=== PATIENT | female | born 1955 | race Hispanic/Latino ===

== ENCOUNTER 2023-09-26 09:30 | Outpatient (CLI) | payer MEDICARE, SELFPAY ==
--- NOTE | ~2023-09-26 | XR_ITS ---
AP and lateral views of the right hip Clinical history: Pain Findings: No acute fracture or dislocation is seen. Osseous alignment is anatomic. Right hip joint sp davis is preserved. Soft tissues are unremarkable. Impression: No significant abnormality is seen. Reviewed, dictated and finalized at location . Impression: No significant abnormality is seen.
--- NOTE | ~2023-09-26 | XR_ITS ---
Lumbosacral Spine: AP and lateral views Clinical History: Pain Findings: The normal lordotic curve is maintained. No fracture identified. There is 4 mm retrolisthes is of L1 over L2. There is 6 mm anterolisthesis of L4 over L5. There is severe facet arthropathy from L3 through S1. There is mild degenerative disc change throughout the lumbar spine, more moderate deg enerative disc change at L2-L3. The sacroiliac joints are normally outlined. Impression: Moderate to advanced spondylosis. 4 mm retrolisthesis of L1 over L2. 6 mm anterolisthesis of L4 over L5. Reviewed, dictated and finalized at location . Impression: Moderate to advanced spondylosis. 4 mm retrolisthesis of L1 over L2. 6 mm anterolisthesis of L4 over L5.
[2023-09-26 10:13] LABS: Hemoglobin 14.4 g/dL (11.7-13.8); Mean Corpuscular HGB Conc 33.5 g/dL (32-36); Mean Corpuscular Hemoglobin 29.4 pg (27.0-31.0); Mean Corpuscular Volume 87.8 fL (78.0-102.0); Platelet Count Result 486 K/mm3 (150-420); Red Cell Distribution Width 12.6 % (11.6-14.4); White Blood Count 7.6 K/mm3 (4.8-10.8)
[2023-09-26 10:16] LABS: Appearance Urine Sl Cloudy (Clear); Bilirubin Urine Negative (Negative); Blood Urine Negative (Negative); Color Urine Yellow (Yellow); Glucose Urine UA Negative (Negative); Ketones Urine Negative (Negative); Leukocyte Esterase Ur 1+ (Negative); Nitrate Urine Positive (Negative); Protein Urine Negative (Negative); pH Urine 6.5 (5.0-8.0)
[2023-09-26 10:22] LABS: MALB Creatinine Ratio 10.2 mg/g (0-30); Microalbumin Urine Random 25.1 mg/L
[2023-09-26 10:24] LABS: Hemoglobin A1C 6.8 % (<5.7)
[2023-09-26 10:26] LABS: Add Urine Microscopic? YES; Bacteria Urine 4+ /hpf; RBC Urine None seen /hpf (0-2); Squamous Epithelial Cell Urine Few /hpf (Few)
[2023-09-26 11:22] LABS: Alanine Aminotransferase 43 U/L (14-59); Albumin Level 3.8 g/dL (3.4-5.0); Alkaline Phosphatase 66 U/L (46-116); Anion Gap 12 mmol/L (4-12); Aspartate Amino Transferase 28 U/L (15-37); Bilirubin,Total 0.4 mg/dL (0.00-1.00); Blood Urea Nitrogen 13 mg/dL (7-18); Calcium 10.5 mg/dL (8.5-10.1); Carbon Dioxide 29 mmol/L (21-32); Chloride 98 mmol/L (98-108); Cholesterol 182 mg/dL (0-200); Creatine Kinase 131 U/L (26-192); Estimated Glomerular Filt Rate > 60; Free T3 2.95 pg/mL (2.18-3.98); Free T4 Free Thyroxine 1.33 ng/dL (0.76-1.46); Glucose 119 mg/dL (70-99); HDL Direct 52 mg/dL (40-60); LDL Cholesterol Calculated 87 mg/dL (<130); Osmolality Calculated 289 mOsm/kg (285-295); Potassium 3.9 mmol/L (3.5-5.1); Sodium 139 mmol/L (136-145); Thyroid Stimulating Hormone 1.41 uIU/mL (0.36-3.74); Total Protein 7.3 g/dL (6.4-8.2); Triglycerides 216 mg/dL (0-150)
== END 2023-09-26 09:31 | disposition home or self-care (01) ==
LOC: CHSLAB 09:39
PROVIDERS: PCP Internal Medicine; Visit Provider Internal Medicine
DX: E11.9 Type 2 diabetes mellitus without complications (principal); M54.50 Low back pain, unspecified; M25.551 Pain in right hip; M43.16 Spondylolisthesis, lumbar region
CPT/HCPCS: 36415; 72100; 73502; 80053; 80061; 81001; 82043; 82550; 83036; 84439; 84443; 84481; 85027; 86140

== ENCOUNTER 2023-10-01 11:33 | Outpatient (CLI) | payer MEDICARE, SELFPAY ==
[2023-10-01 12:21] LABS: Calcium 9.5 mg/dL (8.5-10.1); Phosphorus 3.3 mg/dL (2.6-4.7)
[2023-10-02 11:13] LABS: Ionized Calcium 5.3 mg/dL (4.7-5.5)
[2023-10-02 14:53] LABS: Parathyroid Intact 25 pg/mL (16-77)
[2023-10-03 12:05] LABS: Vitamin D 25 Hydroxy 66 ng/mL (30-100)
[2023-10-08 13:33] LABS: Vitamin D 1,25 (OH)2 Total 44 pg/mL (18-72); Vitamin D2 1,25 (OH)2 <8 pg/mL; Vitamin D3 1,25 (OH)2 44 pg/mL
== END 2023-10-01 11:34 | disposition home or self-care (01) ==
LOC: CHSLAB 11:37
PROVIDERS: PCP Internal Medicine; Visit Provider Internal Medicine
DX: E83.52 Hypercalcemia (principal); N39.0 Urinary tract infection, site not specified
CPT/HCPCS: 36415; 82306; 82310; 82330; 82652; 83970; 84100

== ENCOUNTER 2024-02-01 11:39 | Emergency (ER) | payer MEDICARE, SELFPAY ==
--- NOTE | ~2024-02-01 | CT_ITS ---
EXAMINATION: CT abdomen pelvis w con DATE: 02/01/2024 14:04 INDICATION: abdominal pain, diarrhea, nausea/vomiting x2 months TECHNIQUE: Computed tomography (CT) of the abdomen and pelvis was performed with 100 mL Omnipaque-350 intravenous contrast. Automated exposure control and iterative reconstruction technique were employe d. The dose-length product was 612.89 mGy-cm. COMPARISON: None. FINDINGS: Lower thorax: Unremarkable Liver: Normal. Biliary/Gallbladder: Gallbladder is normal. No bile duct dilation. Pancreas: No mass or duct dilation. Spleen: Normal. Adrenals:No mass. Kidneys: No suspicious mass, obstructing stone, or hydronephrosis. Punctate right inferior pole nonob structing calcification. GI tract: Mild distal esophageal and gastric wall edema. Mild colonic wall edema and mucosal hyperemi a from the hepatic flexure to the rectum. No small or large bowel dilation. Normal appendix. Divertic ulosis without diverticulitis. Mesentery/Peritoneum: No ascites, mass, or free air. Retroperitoneum: No mass. Pelvis: Pelvic organs are within normal limits. Soft Tissues: Soft tissues and body wall unremarkable. Bones: No acute osseous finding. IMPRESSION: Mild esophagitis/gastritis. Colonic wall findings may reflect a component of colitis in the appropriate clinical context. Reviewed, dictated and finalized at location K. HIATRIC NURSE IMPRESSION: Mild esophagitis/gastritis. Colonic wall findings may reflect a component of colitis in the appropriate cli nical context.
[2024-02-01 11:44] VITALS: BP 144/77; PULSE 79; RESP 18; TEMP 36.4; O2SAT 97
--- NOTE | 2024-02-01 11:57 | ED.GENADULT ---
HPI - General Adult General Chief complaint: Nausea/Vomiting/Diarrhea Stated complaint: nausea diarrhea Time Seen by Provider: 02/01/24 11:43 History of Present Illness HPI narrative: Emilee is a 68F with a PMH of DMII that presented to the ED with 2 months of waxing and waning worsening abdominal pain, frequent mucous diarrhea, nausea and non-bloody vommiting. After it started it was attributed to metformin but despite stopping this it continues to worsen. She has lost 50lb in 2 months. She has pain around her umbilicus that radiates to the back. No CP or dyspnea. Related Data Home Medications Medication Instructions Recorded Confirmed duloxetine 60 mg capsule,delayed 120 mg PO DAILY 02/01/24 02/01/24 release gabapentin 800 mg tablet 800 mg PO DAILY 02/01/24 02/01/24 hydrochlorothiazide 25 mg tablet 25 mg PO DAILY 02/01/24 02/01/24 propranolol 60 mg capsule,24 60 mg PO HS 02/01/24 02/01/24 hr,extended release Allergies Allergy/AdvReac Type Severity Reaction Status Date / Time lisinopril Allergy Unknown Verified 02/01/24 12:14 niacin Allergy Unknown Verified 02/01/24 12:14 Yizwdma-GGI-IqR Reductase Allergy Unknown Verified 02/01/24 12:14 Inhibitor Review of Systems Review of Systems: All systems reviewed & are unremarkable except as noted in HPI and below Exam Const: General: cooperative, healthy appearing, comfortable, no acute distress, well developed, alert, awake and Physically active Orientation/consciousness: oriented to person, oriented to place and oriented to time HENMT: Head: normal to inspection, normocephalic and atraumatic Ears: hearing grossly normal bilaterally and external ears normal Face/Nose/Sinus: Normal external nose present Eyes: General: appearance normal, both eyes and all related structures Periorbital: periorbital findings normal Sclera: sclerae normal Pupils: Equal, round and reactive pupils present Neck: Neck: normal visual inspection Chest: Chest palpation & inspection: normal inspection of the chest Resp: Effort & Inspection: normal respiratory effort, able to speak in complete sentences and no respiratory distress Auscultation: clear to auscultation bilaterally Cardio: Jugular venous distension: no JVD Rate: regular rate Rhythm: regular rhythm GI: Inspection: normal to inspection GI Palp: Yes Soft to palpation Auscultation: normal bowel sounds Other: Mild TTP in the lower quadrants. No guarding or rebound tenderness Skin: General skin exam: normal color and no rashes or lesions noted Neuro: General: oriented to person, oriented to place and oriented to time Cranial nerves: Yes Equal, round and reactive pupils present Extrem: General: normal to inspection Course Course Emergency Course: Ordered labs, CT, fluids, morphine, zofran and ativan Labs showed mild leukocytosis, unremarkable chemistries, but tested positive for C. diff. Given oral vancomycin. EXAMINATION: CT abdomen pelvis w con DATE: 02/01/2024 14:04 INDICATION: abdominal pain, diarrhea, nausea/vomiting x2 months TECHNIQUE: Computed tomography (CT) of the abdomen and pelvis was performed with 100 mL Omnipaque-350 intravenous contrast. Automated exposure control and iterative reconstruction technique were employed. The dose-length product was 612.89 mGy-cm. COMPARISON: None. FINDINGS: Lower thorax: Unremarkable Liver: Normal. Biliary/Gallbladder: Gallbladder is normal. No bile duct dilation. Pancreas: No mass or duct dilation. Spleen: Normal. Adrenals:No mass. Kidneys: No suspicious mass, obstructing stone, or hydronephrosis. Punctate right inferior pole nonobstructing calcification. GI tract: Mild distal esophageal and gastric wall edema. Mild colonic wall edema and mucosal hyperemia from the hepatic flexure to the rectum. No small or large bowel dilation. Normal appendix. Diverticulosis without diverticulitis. Mesentery/Peritoneum: No ascites, mass, or free air. Retroperitoneum: No mass. Pelvis: Pelvic organs are within normal limits. Soft Tissues: Soft tissues and body wall unremarkable. Bones: No acute osseous finding. IMPRESSION: Mild esophagitis/gastritis. Colonic wall findings may reflect a component of colitis in the appropriate clinical context. Vital Signs Vital signs: Vital Signs Temperature 97.5 F L 02/01/24 11:44 Pulse Rate 79 02/01/24 11:44 Respiratory Rate 18 02/01/24 11:44 Blood Pressure 144/77 H 02/01/24 11:44 Pulse Oximetry 97 02/01/24 11:44 Oxygen Delivery Room Air 02/01/24 11:44 Temperature 97.5 F L 02/01/24 11:44 Pulse Rate 79 02/01/24 11:44 Respiratory Rate 18 02/01/24 11:44 Blood Pressure 144/77 H 02/01/24 11:44 Pulse Oximetry 97 02/01/24 11:44 Oxygen Delivery Room Air 02/01/24 11:44 Medical Decision Making Vital Signs Vital Signs: Vital Signs Temperature 97.5 F L 02/01/24 11:44 Pulse Rate 79 02/01/24 11:44 Respiratory Rate 18 02/01/24 11:44 Blood Pressure 144/77 H 02/01/24 11:44 Pulse Oximetry 97 02/01/24 11:44 Oxygen Delivery Room Air 02/01/24 11:44 Temperature 97.5 F L 02/01/24 11:44 Pulse Rate 79 02/01/24 11:44 Respiratory Rate 18 02/01/24 11:44 Blood Pressure 144/77 H 02/01/24 11:44 Pulse Oximetry 97 02/01/24 11:44 Oxygen Delivery Room Air 02/01/24 11:44 Lab Data 02/01/24 12:37 02/01/24 12:37 Labs: Lab Results 02/01/24 02/01/24 02/01/24 Range/Units 11:55 12:34 12:37 WBC 12.8 H (4.8-10.8) K/mm3 RBC 4.95 (4.20-5.40) M/mm3 Hgb 14.2 H (11.7-13.8) g/dL Hct 43.0 H (35.0-42.0) % MCV 86.9 (78.0-102.0) fL MCH 28.7 (27.0-31.0) pg MCHC 33.0 (32-36) g/dL RDW 13.4 (11.6-14.4) % Plt Count 448 H (150-420) K/mm3 MPV 10.6 (9.2-11.8) fl Immature Gran % (Auto) 0.5 H (0.0-0.0) % Neut % (Auto) 67.4 (50.0-70.0) % Lymph % (Auto) 24.9 (18.0-42.0) % [place] % (Auto) 6.1 (2.0-11.0) % Eos % (Auto) 0.7 L (1.0-6.0) % Baso % (Auto) 0.4 (0.0-1.0) % Lymph # (Auto) 3.18 (1.10-4.50) K/mm3 [place] # (Auto) 0.78 (0.10-0.90) K/mm3 Eos # (Auto) 0.09 (0.02-0.50) K/mm3 Baso # (Auto) 0.05 (0.00-0.10) K/mm3 Abs Immat Gran (auto) 0.07 H (0.00-0.00) K/mm3 Absolute Neuts (auto) 8.59 H (1.70-7.20) K/mm3 Absolute Nucleated RBC 0.00 (0.00-0.00) K/mm3 Nucleated RBC % 0.0 (0-0.0) % Sodium 141 (136-145) mmol/L Potassium 3.6 (3.5-5.1) mmol/L Chloride 104 (98-108) mmol/L Carbon Dioxide 24 (21-32) mmol/L Anion Gap 13 H (4-12) mmol/L BUN 8 (7-18) mg/dL Creatinine 0.74 (0.55-1.02) mg/dL Estim Creat Clear Calc Not Reportable Estimated GFR > 60 (59 - ) Glucose 112 H (70-99) mg/dL Calculated Osmolality 291 (285-295) mOsm/kg Lactic Acid 1.4 (0.4-2.0) mmol/L Calcium 10.0 (8.5-10.1) mg/dL Total Bilirubin 0.4 (0.00-1.00) mg/dL AST 19 (15-37) U/L ALT 24 (14-59) U/L Alkaline Phosphatase 95 (46-116) U/L Total Protein 6.8 (6.4-8.2) g/dL Albumin 3.0 L (3.4-5.0) g/dL Lipase 43 (16-77) U/L Urine Color Yellow (Yellow) Urine Appearance Clear (Clear) Urine pH 6.5 (5.0-8.0) Ur Specific [place] 1.010 (1.010-1.020) Urine Protein Negative (Negative) Urine Glucose (UA) Negative (Negative) Urine Ketones Negative (Negative) Ur Blood (Man) Negative (Negative) Urine Nitrate Negative (Negative) Urine Bilirubin Negative (Negative) Urine Urobilinogen 0.2 (0.2-1.0) mg/dL Leukocyte Esterase Rfl Trace H (Negative) MALIK/UL Ur Squamous Epith Cells Many H (Few) /hpf Amorphous Sediment Moderate H (None) Urine Bacteria 1+ H (None) /hpf Granular Casts 5-9 H (None) /lpf Urine Mucus Few H /lpf Stool Occult Blood Negative (Negative) C. difficile (PCR) Positive A* (NEGATIVE) Discharge Plan Discharge Clinical Impression: C. difficile colitis Patient Disposition: Home, Self-Care Condition: Stable Instructions: Antibiotic Form Prescriptions: New vancomycin [Vancocin] 125 mg capsule 125 mg PO Q6H 10 Days Qty: 40 0RF Rx Instructions: take 125 mg 4 times per day for 10 days; No Action propranolol 60 mg capsule,extended release 24 hr 60 mg PO HS gabapentin 800 mg tablet 800 mg PO DAILY hydrochlorothiazide 25 mg tablet 25 mg PO DAILY duloxetine 60 mg capsule,delayed release(DR/EC) 120 mg PO DAILY Follow-up/Referrals: Alin Obrien MD [Primary Care Provider] -
[2024-02-01 12:05] LABS: Add Urine Microscopic? YES; Appearance Urine Clear (Clear); Bilirubin Urine Negative (Negative); Blood Urine Negative (Negative); Color Urine Yellow (Yellow); Glucose Urine UA Negative (Negative); Ketones Urine Negative (Negative); Leukocyte Esterase Ur Trace LEU/UL (Negative); Nitrate Urine Negative (Negative); Protein Urine Negative (Negative); Urobilinogen Urine 0.2 mg/dL (0.2-1.0); pH Urine 6.5 (5.0-8.0)
[2024-02-01 12:12] LABS: Amorphous Sediment Urine Moderate; Bacteria Urine 1+ /hpf; Mucus Urine Few /lpf; Squamous Epithelial Cell Urine Many /hpf (Few)
--- NOTE | 2024-02-01 12:35 | PC.NURSE ---
stool culture sent to lab
[2024-02-01] MEDS: SODIUM CHLORIDE 0.9% IV 1,000 ML 999 ML IV CONT (12:37)
[2024-02-01] MEDS: ONDANSETRON INJ 4 MG/2 ML VIAL IV PUSH (12:38)
[2024-02-01] MEDS: MORPHINE SULFATE (*CRX) 2 MG/ML INJ IV PUSH (12:38)
[2024-02-01] MEDS: LORazepam INJ (*CRX) 2 MG/ML VIAL 0.5 MG IV PUSH (12:38)
[2024-02-01 13:00] LABS: Basophils Absolute Auto 0.05 K/mm3 (0.00-0.10); Basophils Percent Auto 0.4 % (0.0-1.0); Eosinophils Absolute Auto 0.09 K/mm3 (0.02-0.50); Eosinophils Percent Auto 0.7 % (1.0-6.0); Hemoglobin 14.2 g/dL (11.7-13.8); Immature Granulocyte Absolute 0.07 K/mm3 (0.00-0.00); Immature Granulocyte Percent A 0.5 % (0.0-0.0); Lymphocytes Absolute Auto 3.18 K/mm3 (1.10-4.50); Lymphocytes Percent Auto 24.9 % (18.0-42.0); Mean Corpuscular Hemoglobin 28.7 pg (27.0-31.0); Mean Corpuscular Volume 86.9 fL (78.0-102.0); Mean Platelet Volume 10.6 fl (9.2-11.8); Monocytes Absolute Auto 0.78 K/mm3 (0.10-0.90); Monocytes Percent Auto 6.1 % (2.0-11.0); Neutrophils Absolute Auto 8.59 K/mm3 (1.70-7.20); Neutrophils Percent Auto 67.4 % (50.0-70.0); Platelet Count Result 448 K/mm3 (150-420); Red Blood Count 4.95 M/mm3 (4.20-5.40); Red Cell Distribution Width 13.4 % (11.6-14.4); White Blood Count 12.8 K/mm3 (4.8-10.8)
[2024-02-01 13:23] LABS: Alanine Aminotransferase 24 U/L (14-59); Alkaline Phosphatase 95 U/L (46-116); Anion Gap 13 mmol/L (4-12); Aspartate Amino Transferase 19 U/L (15-37); Bilirubin,Total 0.4 mg/dL (0.00-1.00); Blood Urea Nitrogen 8 mg/dL (7-18); Carbon Dioxide 24 mmol/L (21-32); Chloride 104 mmol/L (98-108); Estimated Glomerular Filt Rate > 60; Glucose 112 mg/dL (70-99); Lipase 43 U/L (16-77); Osmolality Calculated 291 mOsm/kg (285-295); Potassium 3.6 mmol/L (3.5-5.1); Sodium 141 mmol/L (136-145); Total Protein 6.8 g/dL (6.4-8.2)
[2024-02-01 13:27] LABS: Occult Blood Negative (Negative)
[2024-02-01 13:28] LABS: Lactic Acid Reflex 1.4 mmol/L (0.4-2.0)
[2024-02-01 14:24] LABS: Toxigenic C. Diff POSITIVE (NEGATIVE)
[2024-02-01] MEDS: VANCOMYCIN HCL 125 MG ORAL CAPSULE PO (15:00)
[2024-02-01 15:57] VITALS: BP 127/68; PULSE 66; RESP 20; TEMP 36.7; O2SAT 96
--- NOTE | 2024-02-04 12:37 | PC.NURSE ---
stool culture reviewed. shiga not detected, campylobactor no detected, salmonella pending.
== END 2024-02-01 16:00 | disposition home or self-care (01) ==
PROVIDERS: Emergency Provider Family Medicine; PCP Internal Medicine
DX: A04.72 Enterocolitis due to Clostridium difficile, not specified as recurrent (principal); E11.9 Type 2 diabetes mellitus without complications; Z79.899 Other long term (current) drug therapy
CPT/HCPCS: 36415; 74177; 80053; 81001; 82272; 83605; 83690; 85025; 87045; 87427; 87449; 87493; 96361; 96374; 96375; 99284; A9270; J2060; J2270; J2405; J7030; Q9967

== ENCOUNTER 2025-02-23 11:20 | Outpatient (NON) | payer MEDICARE, SELFPAY ==
[2025-02-23 11:31] LABS: Add Urine Microscopic? YES; Appearance Urine Clear (Clear); Glucose Urine UA Negative (Negative); Leukocyte Esterase Ur Trace (Negative); Nitrate Urine Negative (Negative); Specific Grav Ur 1.025 (1.010-1.020)
[2025-02-23 11:32] LABS: Hematocrit 36.2 % (35.0-42.0); Hemoglobin 12.1 g/dL (11.7-13.8); Mean Corpuscular HGB Conc 33.4 g/dL (32-36); Mean Corpuscular Hemoglobin 30.1 pg (27.0-31.0); Mean Corpuscular Volume 90.0 fL (78.0-102.0); Platelet Count Result 255 K/mm3 (150-420); Red Blood Count 4.02 M/mm3 (4.20-5.40); White Blood Count 20.8 K/mm3 (4.8-10.8)
[2025-02-23 12:22] LABS: Alanine Aminotransferase 31 U/L (6-35); Albumin Level 3.6 g/dL (3.5-5.1); Alkaline Phosphatase 88 U/L (38-126); Anion Gap 15 mmol/L (4-12); Aspartate Amino Transferase 33 U/L (14-36); Bilirubin,Total 0.8 mg/dL (0.2-1.3); Blood Urea Nitrogen 20 mg/dL (7-17); CRP > 9.0 mg/dL (<1.0); Calcium 9.3 mg/dL (8.4-10.2); Carbon Dioxide 20 mmol/L (22-30); Chloride 101 mmol/L (98-107); Estimated Glomerular Filt Rate > 60; Glucose 132 mg/dL (65-110); Lipase 22 U/L (23-300); Osmolality Calculated 286 mOsm/kg (285-295); Potassium 3.7 mmol/L (3.4-5.0); Sodium 136 mmol/L (137-145); Total Protein 6.0 g/dL (6.3-8.2)
[2025-02-23 12:40] LABS: Amylase 33 U/L (30-110)
== END 2025-02-23 11:21 | disposition home or self-care (01) ==
PROVIDERS: PCP Internal Medicine; Visit Provider Internal Medicine
DX: R10.9 Unspecified abdominal pain (principal); R11.2 Nausea with vomiting, unspecified
CPT/HCPCS: 36415; 80053; 81001; 82150; 83690; 85027; 86140; 87086

== ENCOUNTER 2025-03-07 15:36 | Inpatient (IN) | payer MEDICARE, SELFPAY ==
--- NOTE | ~2025-03-07 | CT_ITS ---
CT abdomen pelvis w con INDICATION:diffuse abd pain . COMPARISON: None. TECHNIQUE: Axial images of the abdomen and pelvis were obtained following infusion of 100 mL Isovue 300. Dose optimization technique was utilized. FINDINGS: The lung bases are clear. The liver parenchyma is unremarkable. No intrahepatic mass or ductal dilatation is evident. The gallbladder is unremarkable. The pancreas and spleen are normal in appearance. The adrenal glands are symmetric in size. Heterogeneous area of diminished enhancement within the right kidney suggestive of pyelonephritis. Left kidney demonstrate normal enhancement. No cystic mass is evident. There is no solid mass. There is no hydronephrosis. The stomach and bowel loops are unremarkable. The bladder and rectum are normal. No free intraperitoneal fluid or air is evident. There is no significant retroperitoneal lymphadenopathy. The aorta, visceral vessels and renal arteries demonstrate normal caliber and patency. The lower thoracic and lumbar vertebrae are in normal alignment. IMPRESSION: Heterogeneous enhancement of the right kidney suggestive of pyelonephritis. All CT scans at this facility are performed using low dose modulation techniques as appropriate to perform exam including the following: automated exposure control; use of iterative reconstruction technique; adjustment of the mA and/or kV according to patient size (this includes techniques or standardized protocols for targeted exams where dose is matched to indication/reason for exam). Reviewed, dictated and finalized at location S. NTIST/ENGINEER IMPRESSION: Heterogeneous enhancement of the right kidney suggestive of pyelonephritis. All CT scans at this facility are performed using low dose modulation techniqu es as appropriate to perform exam including the following: automated exposure c ontrol; use of iterative reconstruction technique; adjustment of the mA and/or kV according to patient size (this includes techniques or standardized protocol s for targeted exams where dose is matched to indication/reason for exam).
[2025-03-07 15:39] VITALS: BP 120/78; PULSE 125; RESP 20; TEMP 36.8; O2SAT 99
--- NOTE | 2025-03-07 18:00 | ED_ITS ---
HPI - Nausea/Vomiting/Diarrhea General Chief complaint: Nausea/Vomiting/Diarrhea Stated complaint: abd pain x 1 week, N/V/D Time Seen by Provider: 03/07/25 17:44 History of Present Illness HPI Narrative: This is a 69-year-old female fibromyalgia, lupus who presents the ED for abdominal pain, nausea, vomiting. Patient states that for the past week or so, she has been having right flank and right lower quadrant abdominal pain with nausea and vomiting. She states that she was seen by her PCP for this and was diagnosed with a kidney infection. She completed the antibiotics a few days ago but continues to have symptoms. She called her PCP today who advised her to come to the ED for further evaluation. Patient reports the pain is actually better than was last week but she continues to have this pain. Denies hematuria, dysuria. Related Data Home Medications ?Medication ?Instructions ?Recorded ?Confirmed ?Last Taken ?Type duloxetine 60 mg capsule,delayed 120 mg PO DAILY 01/3102/01/24 Unknown History release gabapentin 800 mg tablet 800 mg PO DAILY 02/01/2401/14 Unknown History hydrochlorothiazide 25 mg tablet 25 mg PO DAILY 02/01/24 Unknown History propranolol 60 mg capsule,24 60 mg PO HS 02/01/2401/22 Unknown History hr,extended release Allergies Allergy/AdvReac Type Severity Reaction Status Date / Time lisinopril Allergy Unknown Verified 03/07/25 22:05 niacin Allergy Unknown Verified 03/07/25 22:05 Ppieljp-VXC-AiO Reductase Allergy Unknown Verified 03/07/25 22:05 Inhibitor Review of Systems 2 Review of Systems: Gen.: Denies fevers or chills Eyes: Denies eye pain or visual change ENT: Denies congestion Respiratory: Denies shortness of breath or cough CV: Denies chest pain or palpitations GI: As per HPI denies burning, urgency, frequency or hematuria Musculoskeletal: Denies back pain or muscle pain Neuro: Denies numbness, tingling, weakness or focal weakness Skin: Denies rash Except as documented, all other systems reviewed and negative [facility] Past Medical History Medical History (Updated 03/07/25 @ 22:08 by Satnam Hale DO) Hyperlipidemia Hypertension Fibromyalgia Anxiety and depression Surgical History Surgical History (Updated 03/07/25 @ 21:06 by Pamella Singh APRN) H/O tubal ligation H/O section times 3 History of tonsillectomy Family History Family History (Updated 03/07/25 @ 22:16 by Ori Gardiner RN) Mother Heart disease Cerebrovascular accident Myocardial infarction Dementia Diabetes mellitus Father Heart disease Cerebrovascular accident Myocardial infarction Dementia Diabetes mellitus Parkinsons Social History Social History (Updated 03/07/25 @ 21:07 by Pamella Singh APRN) Social History: lives with and has 3 children . Smoking status: Former smoker Alcohol intake: never Substance use: current Substance use type: marijuana Lack of Transportation: No Lack of Food: Never True Current Housing: I Have Housing Concerned About Future Housing: No Difficulty Paying Gas/Electric Bills: No Difficulty Paying for Meds: No Currently Unemployed: No Education: High School Diploma/GED Difficulty w/ Childcare or Family Care: No Spiritual care concerns: No Exam 2 Narrative: APPEARANCE: No acute distress, ill-appearing, resting in bed EYES: EOMI HEENT: Normocephalic, atraumatic, OMM RESPIRATORY: No respiratory distress Clear to auscultation bilaterally with no rhonchi wheezing or rales. CARDIOVASCULAR: Regular rate and rhythm without murmurs rubs or gallops. ABDOMINAL: Soft, CVA tenderness on the right, right lower quadrant tenderness to palpation, epigastric tenderness to palpation, no rebound or guarding MUSCULOSKELETAl: Moves all extremities. No clubbing, cyanosis or edema. NEURO: Awake and alert. Following commands, speech normal, no focal deficits SKIN:: Warm, dry. No rashes lesions or abrasions PSYCHIATRIC: Normal affect/mood, Course Vital Signs Vital signs: Vital Signs Temperature 98.2 F 03/07/25 15:39 Pulse Rate 125 H 03/07/25 15:39 Respiratory Rate 20 03/07/25 15:39 Blood Pressure 120/78 03/07/25 15:39 Pulse Oximetry 99 03/07/25 15:39 Oxygen Delivery Room Air 03/07/25 15:39 Temperature 98.3 F 03/07/25 21:55 Pulse Rate 79 03/07/25 21:55 Respiratory Rate 18 03/07/25 21:55 Blood Pressure 162/66 H 03/07/25 21:55 Pulse Oximetry 98 03/07/25 21:55 Oxygen Delivery Room Air 03/07/25 15:39 [facility] Narrative Medical decision making narrative: 69-year-old female Presenting for right abdominal pain had nausea vomiting. On initial evaluation patient was in mild distress afebrile, hemodynamic stable. Differentials include but are not limited to: Gastroenteritis, gastritis, UTI, pyelonephritis, ureterolithiasis, cancer Notable exam findings: CVA tenderness on the right with tenderness palpation of the right lower quadrant. Mucous membranes mildly dry. I personally reviewed the patient's lab result. Notable lab findings: Leukocytosis at 11.7. Thrombocytosis at 699. CMP without significant abnormalities. Lactic acid 2.3. CT abdomen/pelvis consistent with right pyelonephritis. Patient will be given Rocephin for her pyelonephritis with failure of outpatient treatment. Patient will require admission. Case was discussed with hospitalist who will admit the patient. Differential Diagnosis Differential Diagnosis: Gastroenteritis, gastritis, UTI, pyelonephritis, ureterolithiasis, cancer Lab Data [facility] Lab Attestation statement: I personally reviewed the patient's lab results. 03/07/25 18:13 03/07/25 18:13 Labs: Lab Results 03/07/25 Range/Units 18:13 WBC 11.7 H (4.5-10.0) K/mm3 RBC 4.67 (4.2-5.4) M/mm3 Hgb 13.9 (12.0-15.0) g/dL Hct 41.0 (37.0-47.0) % MCV 87.8 (80-100) fl MCH 29.8 (26-34) pg MCHC 33.9 (32-36) g/dl RDW 13.2 (11.5-14.5) % Plt Count 699 H (150-375) k/mm3 MPV 9.3 (7.4-10.4) fl Immature Gran % (Auto) 0.4 (0-0.5) % Neut % (Auto) 47.0 (45.5-73.1) % Lymph % (Auto) 44.1 (18.3-44.2) % [place] % (Auto) 7.6 (2.6-8.5) % Eos % (Auto) 0.4 (0-4.4) % Baso % (Auto) 0.5 (0.2-1.2) % Lymph # (Auto) 5.17 H (0.9-3.2) K/mm3 [place] # (Auto) 0.9 H (0.1-0.6) K/mm3 Eos # (Auto) 0.1 (0-0.3) K/mm3 Baso # (Auto) 0.1 (0.0-0.1) K/mm3 Abs Immat Gran (auto) 0.05 H (0.00-0.031) K/mm3 Absolute Neuts (auto) 5.5 (1.3-6.7) K/mm3 Absolute Nucleated RBC 0.000 (0.0-0.012) K/mm3 Nucleated RBC % 0.0 (0.0-0.2) % Sodium 136 L (137-145) mmol/L Potassium 3.8 (3.4-5.0) mmol/L Chloride 101 (98-107) mmol/L Carbon Dioxide 25 (22-30) mmol/L Anion Gap 10 (4-12) mmol/L BUN 17 (7-17) mg/dL Creatinine 0.83 (0.7-1.0) mg/dL Estim Creat Clear Calc Not Reportable Estimated GFR > 60 (59 - ) Glucose 106 (65-110) mg/dL Lactic Acid 2.3 H (0.7-2.0) mmol/L Calcium 10.3 H (8.4-10.2) mg/dL Total Bilirubin 0.7 (0.2-1.3) mg/dL AST 36 (14-36) U/L ALT 18 (6-35) U/L Alkaline Phosphatase 106 (38-126) U/L Total Protein 8.0 (6.3-8.2) g/dL Albumin 4.3 (3.5-5.1) g/dL Lipase 110 (23-300) U/L Imaging Data Radiologist's impression: ITS Impressions Abdomen/Pelvis CT 03/07/25 19:18 IMPRESSION: Heterogeneous enhancement of the right kidney suggestive of pyelonephritis. All CT scans at this facility are performed using low dose modulation techniques as appropriate to perform exam including the following: automated exposure control; use of iterative reconstruction technique; adjustment of the mA and/or kV according to patient size (this includes techniques or standardized protocols for targeted exams where dose is matched to indication/reason for exam). Discharge Plan Discharge Clinical Impression: Acute pyelonephritis Sepsis Qualifiers: Sepsis type: sepsis due to unspecified organism Sepsis acute organ dysfunction status: without acute organ dysfunction Qualified Code(s): A41.9 - Sepsis, unspecified organism Patient Disposition: Still a Patient Condition: Stable
--- OUTSIDE RECORDS SUMMARY | 2025-03-07 18:34 | XMS_ITS ---
Author Organization Unknown Address [address] [place] [phone] Phone Care Team Providers Care Apparatus Engineering Technologist Name Role Phone SHAJI RAMOS Attending Unavailable Results CBC W/O DIFF - Collect Date/ Time: 02/24/2025 11:45 [facility] ID: [id number] [place] [address], [id number] LOINC: 76133-5 Test Value Unit Reference Range Code Code System Flag WBC 11.5 10^3uL L=4.0 H=10.5 H RBC 4.15 10^6uL L=4.20 H=5.40 L HEMOGLOBIN 12.2 g/dL L=12.0 H=16.0 718-7 LOINC HEMATOCRIT 36.7 VOL% L=37.0 H=47.0 4544-3 LOINC L MCV 88.4 fL L=81.0 H=99.0 MCH 29.4 pg L=27.0 H=32.0 MCHC 33.2 g/dL L=32.0 H=36.0 PLATELETS 301 10^3uL L=100 H=400 27022-6 LOINC RDW 13.1 % L=11.7 H=15.5 COMPREHENSIVE METABOLIC PANE L - Collect Date/Time: 02/24/2025 11:45 [facility] ID: [id number] [place] [address], [id number] LOINC: 78607-8 Test Value Unit Reference Range Code Code System Flag FASTING UNKNOWN BUN 26 mg/dL L=7 H=20 3094-0 LOINC H CREATININE 1.10 mg/dL L=0.52 H=1.04 2160-0 LOINC H AGE 69 83544-8 LOINC eGFR 54 AGE 69 71291-5 LOINC eGFR 54 GLUCOSE 108 mg/dL L=74 H=106 2345-7 LOINC H SODIUM 136 mmol/L L=132 H=144 2951-2 LOINC POTASSIUM 3.1 mmol/L L=3.5 H=5.1 2823-3 LOINC L CHLORIDE 99 mmol/L L=98 H=107 2075-0 LOINC CO2 24.0 mmol/L L=22.0 H=30.0 2028-9 LOINC ANION GAP 16 L=10 H=20 92004-7 LOINC OSMOLALITY 288 mOs/kG L=280 H=296 79890-1 LOINC BUN/CREAT 24.5 3097-3 LOINC CALCIUM 9.0 mg/dL L=8.3 H=10.5 20737-7 LOINC AST 35 U/L L=15 H=46 1920-8 LOINC ALT 24 U/L L=9 H=72 1742-6 LOINC ALKALINE PHOS 121 U/L L=38 H=126 6768-6 LOINC TOTAL BILI 0.8 mg/dL L=0.2 H=1.3 1975-2 LOINC ALBUMIN 3.8 G/dL L=3.5 H=5.0 1751-7 LOINC TOTAL PROTEIN 6.9 g/L L=6.3 H=8.2 2885-2 LOINC A/G RATIO 1.2 80594-[address] ABD/PEL W/ CONTRAST - Com pleted: 02/24/2025 11:40 LOINC: 07610-8 \TM00\\12PI\\DRAo\\BM09\ \MRHo\ [address] [address] ---------NAME--------- NUMBER SEX AGE ADMIT DISC. XRAY# F/C TYPE MAGALI ACE [id number] F 69 02/24/25 02/24/25 [id number] MB1 O/P DATE OF : 1955 M/R# [id number] PH#: [phone] \MRHx\ LOCATION: TRANSCRIBED: 02/24/25 12:07 CT ABD/PEL W/ CONTRAST [id number] COMPLETED:02/24/25 11:40 [facility] [id number] {REASON-CT ABD/PELVIS ABDOMINAL PAIN PHYSICIAN: SHAJI ESPINOSA R A D I O L O G Y R E P O R T CLINICAL INFORMATION: Abdominal pain. Nausea and vomiting. Leukocytosis. Diarrhea. TECHNIQUE: Axial CT images of the abdomen and pelvis were obtained after the uneventful administration of 100 mL isovue 370 IV contrast. Coronal and sagittal reformatted images were obtained, reviewed, and stored. All CT scans at this medical facility are performed using dose modulation techniques as appropriate to a performed exam including the following: Automated exposure control was utilized; adjustment of the MA and/or KV according to patient size; and use of iterative reconstruction technique. CTDIvol = 20.88 mGy DLP = 1007.56 mGy-cm COMPARISON: None FINDINGS: Lung bases: Lung bases are clear. Liver: Hepatic steatosis. Biliary: No calcified gallstones visualized in the gallbladder. No biliary ductal dilatation. Spleen: Unremarkable. Pancreas: Unremarkable. No inflammatory changes, ductal dilatation, or mass identified. Adrenal glands: Left adrenal nodule measures up to 1.2 cm. Kidneys: Abnormal heterogeneous enhancement in the right kidney, may be seen with pyelonephritis in the appropriate clinical setting. There is mild bilateral perinephric stranding and trace fluid. No hydronephrosis. No obstructing calculus visualized. Aorta/Vascular: Moderate atherosclerotic calcification. No abdominal aortic aneurysm. Lymph Nodes: No mass or lymphadenopathy. Bowel/mesentery: Nonspecific nondilated fluid-filled small bowel loops. There are areas of mild small bowel wall thickening. No small bowel obstruction. Appendix is visualized and appears unremarkable. Scattered colonic diverticula without adjacent inflammatory changes to suggest diverticulitis. Pelvic organs: Grossly unremarkable. Bladder: Bladder is underdistended and not well evaluated. Abdominal wall: No mass or hernia. Bones: Mild grade 1 anterolisthesis of L4 on L5. Minimal retrolisthesis of L1 on L2. No evidence of acute fracture or suspicious intraosseous lesion. IMPRESSION: 1. Abnormal heterogeneous enhancement of the right kidney, may be seen with pyelonephritis in the appropriate clinical setting. Correlate with clinical findings. 2. Nonspecific nondilated fluid-filled small bowel loops with areas of mild small bowel wall thickening. Findings may be seen with ileus or enteritis in the appropriate clinical setting. No small bowel obstruction. 3. Scattered colonic diverticula without adjacent inflammatory changes to suggest diverticulitis. 4. Left adrenal nodule measures up to 1.2 cm. Per ACR white paper on incidentally detected adrenal masses, for masses measuring 1-2 cm with no prior imaging and no known cancer history, the etiology is most likely benign. Consider 12 month follow-up CT adrenal mass protocol. 5. Additional findings as described above. LOGY RESEARCH RN \ITLo\ \UNDo\ \UNDx\ \ITLx\ Reviewed and Electronically Signed by: Ken Hernández DO Signed Date: 02/24/25 12:07 Social History Type Status Start Date End Date Code Code Syst em Sex Female Hospital Discharge Instructions Should you have any questions prior to discharge, please contact a member of your healthcare team. If you have left the hospital and have any questions, please contact your primary care physician. Reason For Referral No Data Found Plan of Treatment CT Abdomen/Pelvis W Contrast (08236) Encounters Encounter Diagnosis Start Date Code Code Sys tem Disorder of adrenal gland, unspecified 02/24/2025 SNOMED-CT Personal Care Team Section Imaging Narrative Notes [facility] 02/24/2025 12:10 [facility] [address] [place] [address] ---------NAME--------- NUMBER SEX AGE ADMIT DISC. XRAY# F/C TYPE MAGALI ACE [id number] F 69 02/24/25 02/24/25 [id number] MB1 O/P DATE OF : 1955 M/R# [id number] #: [id number] RM LOCATION: TRANSCRIBED: 02/24/25 12:07 CT ABD/PEL W/ CONTRAST [id number] COMPLETED:02/24/25 11:40 [facility] [id number] {REASON-CT ABD/PELVIS ABDOMINAL PAIN PHYSICIAN: SHAJI ESPINOSA RADIOLOGY REPORT CLINICAL INFORMATION: Abdominal pain. Nausea and vomiting. Leukocytosis. Diarrhea. TECHNIQUE: Axial CT images of the abdomen and pelvis were obtained after the uneventful administration of 100 mL isovue 370 IV contrast. Coronal and sagittal reformatted images were obtained, reviewed, and stored. All CT scans at this medical facility are performed using dose modulation techniques as appropriate to a performed exam including the following: Automated exposure control was utilized; adjustment of the MA and/or KV according to patient size; and use of iterative reconstruction technique. CTDIvol = 20.88 mGy DLP = 1007.56 mGy-cm COMPARISON: None FINDINGS: Lung bases: Lung bases are clear. Liver: Hepatic steatosis. Biliary: No calcified gallstones visualized in the gallbladder. No biliary ductal dilatation. Spleen: Unremarkable. Pancreas: Unremarkable. No inflammatory changes, ductal dilatation, or mass identified. Adrenal glands: Left adrenal nodule measures up to 1.2 cm. Kidneys: Abnormal heterogeneous enhancement in the right kidney, may be seen with pyelonephritis in the appropriate clinical setting. There is mild bilateral perinephric stranding and trace fluid. No hydronephrosis. No obstructing calculus visualized. Aorta/Vascular: Moderate atherosclerotic calcification. No abdominal aortic aneurysm. Lymph Nodes: No mass or lymphadenopathy. Bowel/mesentery: Nonspecific nondilated fluid-filled small bowel loops. There are areas of mild small bowel wall thickening. No small bowel obstruction. Appendix is visualized and appears unremarkable. Scattered colonic diverticula without adjacent inflammatory changes to suggest diverticulitis. Pelvic organs: Grossly unremarkable. Bladder: Bladder is underdistended and not well evaluated. Abdominal wall: No mass or hernia. Bones: Mild grade 1 anterolisthesis of L4 on L5. Minimal retrolisthesis of L1 on L2. No evidence of acute fracture or suspicious intraosseous lesion. IMPRESSION: 1. Abnormal heterogeneous enhancement of the right kidney, may be seen with pyelonephritis in the appropriate clinical setting. Correlate with clinical findings. 2. Nonspecific nondilated fluid-filled small bowel loops with areas of mild small bowel wall thickening. Findings may be seen with ileus or enteritis in the appropriate clinical setting. No small bowel obstruction. 3. Scattered colonic diverticula without adjacent inflammatory changes to suggest diverticulitis. 4. Left adrenal nodule measures up to 1.2 cm. Per ACR white paper on incidentally detected adrenal masses, for masses measuring 1-2 cm with no prior imaging and no known cancer history, the etiology is most likely benign. Consider 12 month follow-up CT adrenal mass protocol. 5. Additional findings as described above. LOGY RESEARCH RN Reviewed and Electronically Signed by: Ken Hernández DO Signed Date: 02/24/25 12:07
[2025-03-07 18:36] LABS: Hematocrit 41.0 % (37.0-47.0); Hemoglobin 13.9 g/dL (12.0-15.0); Immature Granulocyte Percent A 0.4 % (0-0.5); Lymphocytes Absolute Auto 5.17 K/mm3 (0.9-3.2); Mean Corpuscular HGB Conc 33.9 g/dl (32-36); Mean Corpuscular Hemoglobin 29.8 pg (26-34); Mean Corpuscular Volume 87.8 fl (80-100); Nucleated Red Blood Cells Absolute Auto 0.000 K/mm3 (0.0-0.012); Nucleated Red Blood Cells Perc 0.0 % (0.0-0.2); Platelet Count Result 699 k/mm3 (150-375); Red Blood Count 4.67 M/mm3 (4.2-5.4); White Blood Count 11.7 K/mm3 (4.5-10.0)
[2025-03-07 18:41] LABS: Albumin Level 4.3 g/dL (3.5-5.1); Carbon Dioxide 25 mmol/L (22-30); Total Protein 8.0 g/dL (6.3-8.2)
[2025-03-07 18:52] LABS: Alanine Aminotransferase 18 U/L (6-35); Alkaline Phosphatase 106 U/L (38-126); Anion Gap 10 mmol/L (4-12); Aspartate Amino Transferase 36 U/L (14-36); Bilirubin,Total 0.7 mg/dL (0.2-1.3); Blood Urea Nitrogen 17 mg/dL (7-17); Calcium 10.3 mg/dL (8.4-10.2); Chloride 101 mmol/L (98-107); Estimated Glomerular Filt Rate > 60; Glucose 106 mg/dL (65-110); Lipase 110 U/L (23-300); Potassium 3.8 mmol/L (3.4-5.0); Sodium 136 mmol/L (137-145)
[2025-03-07] MEDS: SODIUM CHLORIDE 0.9% IV 1,000 ML 999 ML IV CONT (18:56)
[2025-03-07] MEDS: KETOROLAC 15 MG/ML VIAL (*BKC) IV PUSH (18:56)
[2025-03-07] MEDS: ONDANSETRON INJ 4 MG/2 ML VIAL IV PUSH (18:57)
[2025-03-07 19:15] VITALS: BP 99/52; PULSE 89; RESP 11; O2SAT 100
[2025-03-07 20:26] VITALS: BP 117/63; PULSE 81; RESP 10; O2SAT 99
--- NOTE | 2025-03-07 20:30 | PM.IMHP2 ---
H&P: HPI History of Present Illness Date/Time: 03/07/25 20:30 Chief Complaint: Nausea vomiting and diarrhea. Narrative: This is a 69-year-old female patient who has a history of fibromyalgia. She presented to the emergency room with nausea vomiting and abdominal pain. She has been having right flank pain for over week and now has left flank pain. She was seen by her primary care doctor this last week and was diagnosed with a urinary tract infection. She completed all of her antibiotics. She still continues to have flank pain bilaterally. She notified her PCP today who then instructed her to go to the emergency room. Her white count is noted to be 11.7. Her lactic was 2.3 and is now 1.9. Calcium was 10.3. Abdomen/pelvis CT was read as heterogeneous enhancement of the right kidney suggestive of pyelonephritis. The patient was started on IV fluids, Zofran, Toradol and Rocephin. The patient is being admitted to inpatient status the date of service of 03/07/2025 Review of Systems Constitutional: Constitutional: Reports as per HPI and Reports no additional constitutional complaints Eyes: Eyes: Reports as per HPI and Reports no additional eye complaints ENT: Reports no additional ear, nose, mouth, and throat complaints and Reports Normal hearing present Cardiovascular: Cardiovascular: Reports no additional cardiovascular complaints Respiratory: Respiratory: Reports as per HPI and Reports no additional respiratory complaints Gastrointestinal: Gastrointestinal: Reports as per HPI and Reports no additional gastrointestinal complaints Genitourinary: Genitourinary: Reports no additional female genitourinary complaints Musculoskeletal: Musculoskeletal: Reports no additional musculoskeletal complaints Integumentary/Breasts: Skin/Breast: Reports system reviewed and no additional complaints, except as docu Neurologic: Reports no additional neurologic complaints and Reports Normal hearing present Psychiatric: Psychiatric: Reports no additional psychiatric complaints and Reports as per HPI Hematologic/Lymphatic: Hematologic/Lymphatic: Reports no additional hematologic/lymphatic complaints Allergic/Immunologic: Allergic/Immunologic: Reports no additional allergic/immunologic complaints [facility] Past Medical History Medical History (Updated 03/07/25 @ 22:08 by Satnam Hale DO) Hyperlipidemia Hypertension Fibromyalgia Anxiety and depression Surgical History Surgical History (Updated 03/07/25 @ 21:06 by Pamella Singh APRN) H/O tubal ligation H/O section times 3 History of tonsillectomy Family History Family History (Updated 03/07/25 @ 21:08 by Pamella Singh APRN) Mother Heart disease Cerebrovascular accident Father Heart disease Cerebrovascular accident Social History Social History (Updated 03/07/25 @ 21:07 by Pamella Singh APRN) Social History: lives with and has 3 children . Smoking status: Former smoker Meds Home Medications and Allergies Home Medications ?Medication ?Instructions ?Recorded ?Confirmed ?Type duloxetine 60 mg capsule,delayed 120 mg PO DAILY 02/01/24 02/01/24 History release gabapentin 800 mg tablet 800 mg PO DAILY 02/01/24 02/01/24 History hydrochlorothiazide 25 mg tablet 25 mg PO DAILY 02/01/24 02/01/24 History propranolol 60 mg capsule,24 60 mg PO HS 02/01/24 02/01/24 History hr,extended release vancomycin 125 mg capsule 125 mg PO Q6H 10 days #40 caps 02/01/24 Rx (Vancocin) Allergies Allergy/AdvReac Type Severity Reaction Status Date / Time lisinopril Allergy Unknown Verified 03/07/25 22:05 niacin Allergy Unknown Verified 03/07/25 22:05 Rjvvxir-ZGT-XfK Reductase Allergy Unknown Verified 03/07/25 22:05 Inhibitor Vital Signs Vital Signs - 24 hr 03/07/25 15:39 Temperature 98.2 F Pulse Rate 125 H Respiratory Rate 20 Blood Pressure 120/78 Pulse Oximetry 99 Oxygen Delivery Room Air Exam Const: General: cooperative, no acute distress, well developed, awake, Physically active, average body habitus and well nourished Nutritional Appearance: average body habitus and well nourished Orientation/consciousness: oriented to person, oriented to place, oriented to time and patient oriented x3 Limitations: no limitations HENMT: Head: normal to inspection, No palpable skull fracture present and normocephalic Eyes: General: appearance normal, both eyes and all related structures Alignment and Position: alignment normal Periorbital: periorbital findings normal Eyelids: eyelids normal Neck: Neck: normal visual inspection and full ROM Chest: Chest palpation & inspection: normal inspection of the chest Resp: Effort & Inspection: normal respiratory effort Auscultation: clear to auscultation bilaterally Percussion: percussion normal Cardio: Palpation: normal PMI Rate: regular rate Rhythm: regular rhythm Heart sounds: S1 normal heart sound present and S2 normal heart sound present Peripheral pulses: Peripheral pulses 2+ throughout GI: Inspection: normal to inspection GI Palp: Yes Tenderness to palpation present (GI) (CVa tenderness bilaterally.) Auscultation: normal bowel sounds Rectal Exam: deferred Skin: General skin exam: normal color Lesions: no lesions Rashes: no rashes Trauma: no lacerations or abrasions Wounds: no wounds Hair: normal Nails: normal Neuro: General: oriented to person, oriented to place, oriented to time and patient oriented x3 Cranial nerves: Yes Normal hearing present Cognition (Neuro): normal cognition Speech: normal speech Gait exam (Neuro): Normal gait present Motor exam (neuro): 5/5 motor strength present throughout Sensory Exam: normal sensation Extrem: General: normal to inspection Right upper extremity: normal to inspection and shoulder/upper arm Left upper extremity: normal to inspection and shoulder/upper arm Right lower extremity: normal to inspection Left lower extremity: normal to inspection Psych: Appearance: grossly normal Mental Status: mental status grossly normal Speech and movement: Normal speech and movement present Affect: normal affect Attitude: cooperative Thought process: Normal thought process present Thought content: Yes Normal thought content present Insight: Good insight present (Psych) Judgement: Good judgement present (Psych) Results Labs Labs: Short CBC 03/07/25 Range/Units 18:13 WBC 11.7 H (4.5-10.0) K/mm3 Hgb 13.9 (12.0-15.0) g/dL Hct 41.0 (37.0-47.0) % Plt Count 699 H (150-375) k/mm3 BMP 03/07/25 18:13 Sodium 136 L Potassium 3.8 Chloride 101 Carbon Dioxide 25 BUN 17 Creatinine 0.83 Glucose 106 Calcium 10.3 H Liver Function 03/07/25 Range/Units 18:13 Total Bilirubin 0.7 (0.2-1.3) mg/dL AST 36 (14-36) U/L ALT 18 (6-35) U/L Alkaline Phosphatase 106 (38-126) U/L Albumin 4.3 (3.5-5.1) g/dL Imaging CT scan - abdomen: Radiologist's impression: ITS Impressions Abdomen/Pelvis CT 03/07/25 19:18 IMPRESSION: Heterogeneous enhancement of the right kidney suggestive of pyelonephritis. All CT scans at this facility are performed using low dose modulation techniques as appropriate to perform exam including the following: automated exposure control; use of iterative reconstruction technique; adjustment of the mA and/or kV according to patient size (this includes techniques or standardized protocols for targeted exams where dose is matched to indication/reason for exam). Quality VTE Prophylaxis VTE prophylaxis: mechanical ordered Assessment and Plan Assessment and plan (1) Pyelonephritis: Code(s): N12 - Tubulo-interstitial nephritis, not specified as acute or chronic Status: Acute Assessment and Plan: -UA with reflex is been ordered. -blood cultures have been ordered -the patient has been started on Rocephin. -the patient has bilateral CVA tenderness. -continue with IV fluids. -continue with Zofran for nausea. (2) Anxiety and depression: Code(s): F41.9 - Anxiety disorder, unspecified; F32.A - Depression, unspecified Status: Acute Assessment and Plan: -continue with duloxetine. (3) Hypertension: Code(s): I10 - Essential (primary) hypertension Status: Acute Assessment and Plan: -hold hydrochlorothiazide at this time. -p.r.n. hydralazine with parameters. -continue with propanolol (4) Hyperlipidemia: Code(s): E78.5 - Hyperlipidemia, unspecified Status: Acute Assessment and Plan: -continue with home medication. (5) Fibromyalgia: Code(s): M79.7 - Fibromyalgia Status: Acute Assessment and Plan: -continue with gabapentin.
[2025-03-07] MEDS: cefTRIAXone 2 GM in SODIUM CHLORIDE 0.9% IV 100 ML 200 ML IVPB (21:22)
[2025-03-07 21:28] VITALS: BP 133/65; PULSE 83; RESP 10; O2SAT 99
--- NOTE | 2025-03-07 21:31 | WPCEDHO ---
ED Hand Off Checklist All vitals saved:Y IV Site documented:Y All med administrations documented:Y Triage Note Triage Note Pt to ED via POV with 03/07/25 15:39 with c/o abdominal pain, N,V, D, fever & chills, weakness X1week. Headache X5days. Denies any sick exposures, no PMH GI diagnosis, has all organ. Allergies lisinopril Allergy (Verified 03/07/25 15:39) Unknown niacin Allergy (Verified 03/07/25 15:39) Unknown Gdldvir-CPM-UaS Reductase Inhibitor Allergy (Verified 03/07/25 15:39) Unknown Family History (Last Updated 03/07/25 @ 21:08 by Pamella Singh, STRUCTURAL IRON ERECTOR) Mother Heart disease Cerebrovascular accident Father Heart disease Cerebrovascular accident Administered/Completed Medications Discontinued Medications Sodium Chloride (Normal Saline Iv) 1,000 mls @ 999 mls/hr IV CONT .Q1H1M STA Stop: 03/07/25 18:49 Last Infusion: 03/07/25 20:30 Dose: Infused Documented By: Admin: 03/07/25 18:56 Dose: 999 mls/hr Documented By: MOSES Ceftriaxone Sodium 2 gm/ (Sodium Chloride) 100 mls @ 200 mls/hr IVPB ONCE STA Stop: 03/07/25 19:58 Last Admin: 03/07/25 21:22 Dose: 200 mls/hr Documented By: MOSES Ketorolac Tromethamine (Ketorolac 15 Mg/Ml Vial (*Bkc)) 15 mg IV PUSH ONCE ONE Stop: 03/07/25 18:00 Last Admin: 03/07/25 18:56 Dose: 15 mg Documented By: MOSES Ondansetron HCl (Ondansetron Inj 4 Mg/2 Ml Vial) 4 mg IV PUSH ONCE STA Stop: 03/07/25 17:50 Last Admin: 03/07/25 18:57 Dose: 4 mg Documented By: MOSES Interventions/Assessments IV / Saline Lock, Insert Start: 03/07/25 15:37 Freq: Status: Active Protocol: Document 03/07/25 18:52 MOSES (Rec: 03/07/25 18:52 MOSES [id number]) IV Assessment Peripheral Access Right Forearm IV Catheter Access Initiated IV Insertion Date 03/07/25 IV Insertion Time 18:52 Catheter Gauge 20 IV Insertion 1 Attempts IV Site Assessment WNL IV Care and WNL,Access Locked Maintenance PA: Gastrointestinal Assessment Start: 03/07/25 15:37 Freq: Status: Active Protocol: Document 03/07/25 18:27 TLB (Rec: 03/07/25 21:27 TLB [id number]) GI Assessment Gastrointestinal Diarrhea,Nausea,Pain,Swallowing Impaired Symptoms Description Flat,Soft,Tender All Quadrants Bowel Sounds Active Pattern Diarrhea Last Vital Signs Temperature 98.2 F 03/07/25 15:39 Pulse Rate 83 03/07/25 21:28 Respiratory Rate 10 L 03/07/25 21:28 Pulse Oximetry 99 03/07/25 21:28 Blood Pressure 133/65 03/07/25 21:28 Blood Pressure Mean 87 03/07/25 21:28 Blood Pressure Position Sitting 03/07/25 15:39 Oxygen Delivery Room Air 03/07/25 15:39 Weight 61.8 kg 03/07/25 15:39 Last Result - Abnormals Only WBC 11.7 K/mm3 (4.5-10.0) H 03/07/25 18:13 Plt Count 699 k/mm3 (150-375) H 03/07/25 18:13 Lymph # (Auto) 5.17 K/mm3 (0.9-3.2) H 03/07/25 18:13 Leslie # (Auto) 0.9 K/mm3 (0.1-0.6) H 03/07/25 18:13 Abs Immat Gran (auto) 0.05 K/mm3 (0.00-0.031) H 03/07/25 18:13 Sodium 136 mmol/L (137-145) L 03/07/25 18:13 Lactic Acid 2.3 mmol/L (0.7-2.0) H 03/07/25 18:13 Calcium 10.3 mg/dL (8.4-10.2) H 03/07/25 18:13 Most Recent Suicide Severity Rating Suicide Severity Rating NO RISK INDICATED 03/07/25 15:39
[2025-03-07 21:55] VITALS: BP 162/66; PULSE 79; RESP 18; TEMP 36.8; O2SAT 98
[2025-03-07 22:05] VITALS: BMI 28.1
--- NOTE | 2025-03-07 22:18 | PC.NURSE ---
PATIENT ARRIVED ON 3 MEDSUR AT 7658
[2025-03-07] MEDS: LACTATED RINGERS 1,000 ML 100 ML IV CONT (22:24)
[2025-03-08 04:00] VITALS: BP 124/59; PULSE 74; RESP 18; TEMP 36.9; O2SAT 98
[2025-03-08 06:00] VITALS: BP 124/59; PULSE 74; RESP 18; TEMP 36.9; O2SAT 98
[2025-03-08 06:51] LABS: Anion Gap 7 mmol/L (4-12); Blood Urea Nitrogen 16 mg/dL (7-17); Calcium 8.9 mg/dL (8.4-10.2); Carbon Dioxide 23 mmol/L (22-30); Chloride 105 mmol/L (98-107); Estimated Glomerular Filt Rate > 60; Glucose 95 mg/dL (65-110); Magnesium 2.1 mg/dL (1.6-2.3); Potassium 3.6 mmol/L (3.4-5.0); Sodium 135 mmol/L (137-145)
--- NOTE | 2025-03-08 07:36 | P.PNIM_ITS ---
Assessment and Plan Assessment and Plan (1) Pyelonephritis: Code(s): N12 - Tubulo-interstitial nephritis, not specified as acute or chronic Status: Acute Assessment and Plan: - originally diagnosed with UTI 02/25 and was prescribed Levaquin without much improvement in her symptoms. - CT A/P with R-sided pyelonephritis - UA with 1+ LE, 21-50 WBC. Urine was collected after starting antibiotics. - follow-up blood and urine cultures -continue IV Rocephin (2) Anxiety and depression: Code(s): F41.9 - Anxiety disorder, unspecified; F32.A - Depression, unspecified Status: Acute Assessment and Plan: -continue home duloxetine, propranolol once med list verified (3) Hypertension: Code(s): I10 - Essential (primary) hypertension Status: Acute Assessment and Plan: -BP 124/59 -hold hydrochlorothiazide due to concerns for dehydration -p.r.n. hydralazine with parameters. -continue home propranolol once verified (4) Fibromyalgia: Code(s): M79.7 - Fibromyalgia Status: Acute Assessment and Plan: -continue home gabapentin, duloxetine once verified Plan Code status: full code DVT prophylaxis: SCDs Dispo:home in 1-2 days Medical Record Review I have reviewed the following patient records and this information was taken into consideration when formulating the assessment and plan.: previous ER visits Subjective Date/time seen: 03/08/25 07:36 Interval history: Patient seen and examined at bedside. Feeling much better this AM. Nausea/vomiting improved, but CVA tenderness still present. Denied abdominal pain, fever, chills, cough. Review of Systems Review of Systems: All systems reviewed & are unremarkable except as noted in HPI and below Exam Narrative: General: NAD Eyes: EOMI ENT: neck supple Cardiovascular: Regular rate and rhythm Respiratory: Clear to auscultation, respirations even and unlabored on RA Gastrointestinal: Soft, non tender Genitourinary: mild suprapubic tenderness with palpation, mild R CVA tenderness Musculoskeletal: No edema Skin: warm, dry Neuro: Alert. Psych: Mood appropriate Objective Data Vital Signs Vital Signs: Vital Signs - 24 hr 03/07/25 15:39 03/07/25 19:15 03/07/25 20:26 Temperature 98.2 F Pulse Rate 125 H 89 81 Respiratory Rate 20 11 L 10 L Blood Pressure 120/78 99/52 L 117/63 Pulse Oximetry 99 100 99 Oxygen Delivery Room Air 03/07/25 21:28 03/07/25 21:55 03/08/25 04:00 Temperature 98.3 F 98.4 F Pulse Rate 83 79 74 Respiratory Rate 10 L 18 18 Blood Pressure 133/65 162/66 H 124/59 L Pulse Oximetry 99 98 98 Oxygen Delivery 03/08/25 06:00 Temperature 98.4 F Pulse Rate 74 Respiratory Rate 18 Blood Pressure 124/59 L Pulse Oximetry 98 Oxygen Delivery Intake/Output Intake/Output: Intake & Output 03/05/25 03/06/25 03/07/25 03/08/25 23:59 23:59 23:59 23:59 Intake Total 1000 250 Balance 1000 250 Meds/Results Medications: Active Medications Generic Name Dose Route Start Last Admin Trade Name Freq PRN Reason Stop Dose Admin Hydralazine HCl 10 mg 03/07/25 22:07 Hydralazine Hcl 20 Mg/Ml Vial IV PUSH Q8H PRN Blood Pressure - High Ceftriaxone Sodium 1 gm/ 50 mls @ 100 mls/hr 03/08/25 21:00 03/07/25 22:25 Sodium Chloride IVPB Not Given Q24H CHRISTINA Lactated Ringer's 1,000 mls @ 100 mls/hr 03/07/25 22:00 03/07/25 22:24 Lr - Lactated Ringers Iv IV CONT 100 mls/hr .Q10H CHRISTINA Administration Ondansetron HCl 4 mg 03/07/25 22:00 Ondansetron Inj 4 Mg/2 Ml Vial IV PUSH Q4H PRN Nausea And Vomiting Radiology Results: ITS Impressions Abdomen/Pelvis CT 03/07/25 19:18 IMPRESSION: Heterogeneous enhancement of the right kidney suggestive of pyelonephritis. All CT scans at this facility are performed using low dose modulation techniques as appropriate to perform exam including the following: automated exposure control; use of iterative reconstruction technique; adjustment of the mA and/or kV according to patient size (this includes techniques or standardized protocols for targeted exams where dose is matched to indication/reason for exam). Labs Labs: Laboratory Results - last 24 hr 03/07/25 03/07/25 03/08/25 18:13 21:19 05:55 WBC 11.7 H RBC 4.67 Hgb 13.9 Hct 41.0 MCV 87.8 MCH 29.8 MCHC 33.9 RDW 13.2 Plt Count 699 H MPV 9.3 Immature Gran % (Auto) 0.4 Neut % (Auto) 47.0 Lymph % (Auto) 44.1 [place] % (Auto) 7.6 Eos % (Auto) 0.4 Baso % (Auto) 0.5 Lymph # (Auto) 5.17 H [place] # (Auto) 0.9 H Eos # (Auto) 0.1 Baso # (Auto) 0.1 Abs Immat Gran (auto) 0.05 H Absolute Neuts (auto) 5.5 Absolute Nucleated RBC 0.000 Nucleated RBC % 0.0 Sodium 136 L 135 L Potassium 3.8 3.6 Chloride 101 105 Carbon Dioxide 25 23 Anion Gap 10 7 BUN 17 16 Creatinine 0.83 0.85 Estim Creat Clear Calc Not Reportable Not Reportable Estimated GFR > 60 > 60 Glucose 106 95 Lactic Acid 2.3 H 1.9 0.9 Calcium 10.3 H 8.9 Magnesium 2.1 Total Bilirubin 0.7 AST 36 ALT 18 Alkaline Phosphatase 106 Total Protein 8.0 Albumin 4.3 Lipase 110
[2025-03-08 08:20] LABS: Add Urine Microscopic? YES; Appearance Urine Clear (Clear); Glucose Urine UA Negative (Negative); Leukocyte Esterase Ur 1+ LEU/UL (Negative); Nitrate Urine Negative (Negative); Non Pathogenic Casts 0-2; Specific Grav Ur 1.020 (1.001-1.035)
[2025-03-08] MEDS: LACTATED RINGERS 1,000 ML 100 ML IV CONT (09:12)
[2025-03-08 14:00] VITALS: BP 117/65; PULSE 77; RESP 18; TEMP 36.9; O2SAT 98
[2025-03-08 16:32] LABS: Hematocrit 35.6 % (37.0-47.0); Hemoglobin 11.7 g/dL (12.0-15.0); Mean Corpuscular HGB Conc 32.9 g/dl (32-36); Mean Corpuscular Hemoglobin 29.4 pg (26-34); Mean Corpuscular Volume 89.4 fl (80-100); Platelet Count Result 578 k/mm3 (150-375); Red Blood Count 3.98 M/mm3 (4.2-5.4); White Blood Count 8.0 K/mm3 (4.5-10.0)
[2025-03-08 20:00] VITALS: BP 145/72; PULSE 73; RESP 16; TEMP 36.6; O2SAT 99
[2025-03-08] MEDS: cefTRIAXone 1 GM in SODIUM CHLORIDE 0.9% IV 50 ML 100 ML IVPB (20:17)
[2025-03-08 22:42] VITALS: BP 145/72; PULSE 73; RESP 16; TEMP 36.6; O2SAT 99
[2025-03-09 06:01] VITALS: BP 151/80; PULSE 79; RESP 16; TEMP 36.8; O2SAT 98
[2025-03-09 06:37] LABS: Hematocrit 38.6 % (37.0-47.0); Hemoglobin 12.4 g/dL (12.0-15.0); Immature Granulocyte Percent A 0.3 % (0-0.5); Lymphocytes Absolute Auto 3.11 K/mm3 (0.9-3.2); Mean Corpuscular HGB Conc 32.1 g/dl (32-36); Mean Corpuscular Hemoglobin 29.3 pg (26-34); Mean Corpuscular Volume 91.3 fl (80-100); Nucleated Red Blood Cells Absolute Auto 0.000 K/mm3 (0.0-0.012); Nucleated Red Blood Cells Perc 0.0 % (0.0-0.2); Platelet Count Result 570 k/mm3 (150-375); Red Blood Count 4.23 M/mm3 (4.2-5.4); White Blood Count 7.0 K/mm3 (4.5-10.0)
[2025-03-09 07:10] LABS: Alanine Aminotransferase 14 U/L (6-35); Albumin Level 3.9 g/dL (3.5-5.1); Alkaline Phosphatase 91 U/L (38-126); Anion Gap 7 mmol/L (4-12); Aspartate Amino Transferase 21 U/L (14-36); Bilirubin,Total 0.5 mg/dL (0.2-1.3); Blood Urea Nitrogen 12 mg/dL (7-17); Calcium 9.6 mg/dL (8.4-10.2); Carbon Dioxide 24 mmol/L (22-30); Chloride 109 mmol/L (98-107); Estimated Glomerular Filt Rate > 60; Glucose 105 mg/dL (65-110); Magnesium 1.9 mg/dL (1.6-2.3); Potassium 3.7 mmol/L (3.4-5.0); Sodium 140 mmol/L (137-145); Total Protein 7.1 g/dL (6.3-8.2)
--- NOTE | 2025-03-09 07:40 | P.PNIM_ITS ---
Assessment and Plan Assessment and Plan (1) Pyelonephritis: Code(s): N12 - Tubulo-interstitial nephritis, not specified as acute or chronic Status: Acute Assessment and Plan: * originally diagnosed with UTI 02/25 and was prescribed Levaquin without much improvement in her symptoms. * CT A/P with R-sided pyelonephritis * UA with 1+ LE, 21-50 WBC. Urine was collected after starting antibiotics. * follow-up blood and urine cultures - still pending * continue IV Rocephin (2) Anxiety and depression: Code(s): F41.9 - Anxiety disorder, unspecified; F32.A - Depression, unspecified Status: Acute Assessment and Plan: * continue home duloxetine, propranolol once med list verified (3) Hypertension: Code(s): I10 - Essential (primary) hypertension Status: Acute Assessment and Plan: * BP 124/59 * hold hydrochlorothiazide due to concerns for dehydration * p.r.n. hydralazine with parameters. * continue home propranolol once verified (4) Fibromyalgia: Code(s): M79.7 - Fibromyalgia Status: Acute Assessment and Plan: * continue home gabapentin, duloxetine once verified Plan Code status: full code DVT prophylaxis: SCDs Dispo:home in 1-2 days Subjective Date/time seen: 03/09/25 07:40 Interval history: 69-year-old female patient who has a history of fibromyalgia. She presented to the emergency room with nausea vomiting and abdominal pain. She has been having right flank pain for over week and now has left flank pain. 03/09/2025 Patient sitting comfortably in bed at time of exam. Denies any chest pain, SOB, n/v or abd pain at this time. Urine culture still pending. Will need to continue to monitor for sensitivities as patient failed out pt abx. Pt otherwise stable and has no complaints. Review of Systems Review of Systems: All systems reviewed & are unremarkable except as noted in HPI and below Constitutional: Constitutional: Reports as per HPI and Reports no additional constitutional complaints Eyes: Eyes: Reports as per HPI and Reports no additional eye complaints ENT: Reports system reviewed and no additional complaints, except as documented and Reports Normal hearing present Cardiovascular: Cardiovascular: Reports no additional cardiovascular complaints Respiratory: Respiratory: Reports as per HPI and Reports no additional respiratory complaints Gastrointestinal: Gastrointestinal: Reports as per HPI and Reports no additional gastrointestinal complaints Genitourinary: Genitourinary: Reports no additional female genitourinary complaints Musculoskeletal: Musculoskeletal: Reports no additional musculoskeletal complaints Integumentary/Breasts: Skin/Breast: Reports system reviewed and no additional complaints, except as docu Neurologic: Reports system reviewed and no additional complaints, except as documented and Reports Normal hearing present Psychiatric: Psychiatric: Reports no additional psychiatric complaints and Reports as per HPI Hematologic/Lymphatic: Hematologic/Lymphatic: Reports no additional hematologic/lymphatic complaints Allergic/Immunologic: Allergic/Immunologic: Reports no additional allergic/immunologic complaints Exam Narrative: General: NAD Eyes: EOMI ENT: neck supple Cardiovascular: Regular rate and rhythm Respiratory: Clear to auscultation, respirations even and unlabored on RA Gastrointestinal: Soft, non tender Genitourinary: mild suprapubic tenderness with palpation, mild R CVA tenderness Musculoskeletal: No edema Skin: warm, dry Neuro: Alert. Psych: Mood appropriate Const: General: cooperative, no acute distress, well developed, awake, Physically active, average body habitus and well nourished Nutritional Appearance: average body habitus and well nourished Orie ntation/consciousness: oriented to person, oriented to place, oriented to time and patient oriented x3 Limitations: no limitations HENMT: Head: normal to inspection, No palpable skull fracture present and normocephalic Eyes: General: appearance normal, both eyes and all related structures Alignment and Position: alignment normal Periorbital: periorbital findings normal Eyelids: eyelids normal Neck: Neck: normal visual inspection and full ROM Chest: Chest palpation & inspection: normal inspection of the chest Resp: Effort & Inspection: normal respiratory effort Auscultation: clear to auscultation bilaterally Percussion: percussion normal Cardio: Palpation: normal PMI Rate: regular rate Rhythm: regular rhythm Heart sounds: S1 normal heart sound present and S2 normal heart sound present Peripheral pulses: Peripheral pulses 2+ throughout GI: Inspection: normal to inspection Auscultation: normal bowel sounds Rectal Exam: deferred Skin: General skin exam: normal color Lesions: no lesions Rashes: no rashes Trauma: no lacerations or abrasions Wounds: no wounds Hair: normal Nails: normal Neuro: General: oriented to person, oriented to place, oriented to time and patient oriented x3 Cranial nerves: Yes Normal hearing present Cognition (Neuro): normal cognition Speech: normal speech Gait exam (Neuro): Normal gait present Motor exam (neuro): 5/5 motor strength present throughout Sensory Exam: normal sensation Extrem: General: normal to inspection Right upper extremity: normal to inspection and shoulder/upper arm Left upper extremity: normal to inspection and shoulder/upper arm Right lower extremity: normal to inspection Left lower extremity: normal to inspection Psych: Appearance: grossly normal Mental Status: mental status grossly normal Speech and movement: Normal speech and movement present Affect: normal affect Attitude: cooperative Thought process: Normal thought process present Insight: Good insight present (Psych) Judgement: Good judgement present (Psych) Objective Data Vital Signs Vital Signs: Vital Signs - 24 hr 03/08/25 14:00 03/08/25 20:00 03/08/25 22:42 Temperature 98.4 F 97.9 F 97.9 F Pulse Rate 77 73 73 Respiratory Rate 18 16 16 Blood Pressure 117/65 145/72 H 145/72 H Pulse Oximetry 98 99 99 03/09/25 06:01 Temperature 98.3 F Pulse Rate 79 Respiratory Rate 16 Blood Pressure 151/80 H Pulse Oximetry 98 Intake/Output Intake/Output: Intake & Output 03/06/25 03/07/25 03/08/25 03/09/25 23:59 23:59 23:59 23:59 Intake Total 1000 1969 Balance 1000 1969 Meds/Results Medications: Active Medications Generic Name Dose Route Start Last Admin Trade Name Freq PRN Reason Stop Dose Admin Hydralazine HCl 10 mg 03/07/25 22:07 Hydralazine Hcl 20 Mg/Ml Vial IV PUSH Q8H PRN Blood Pressure - High Ceftriaxone Sodium 1 gm/ 50 mls @ 100 mls/hr 03/08/25 21:00 03/08/25 20:17 Sodium Chloride IVPB 100 mls/hr Q24H CHRISTINA Administration Ondansetron HCl 4 mg 03/07/25 22:00 Ondansetron Inj 4 Mg/2 Ml Vial IV PUSH Q4H PRN Nausea And Vomiting Radiology Results: ITS Impressions Abdomen/Pelvis CT 03/07/25 19:18 IMPRESSION: Heterogeneous enhancement of the right kidney suggestive of pyelonephritis. All CT scans at this facility are performed using low dose modulation techniques as appropriate to perform exam including the following: automated exposure control; use of iterative reconstruction technique; adjustment of the mA and/or kV according to patient size (this includes techniques or standardized protocols for targeted exams where dose is matched to indication/reason for exam). Labs Labs: Laboratory Results - last 24 hr 03/08/25 03/08/25 03/09/25 08:10 16:09 06:31 WBC 8.0 7.0 RBC 3.98 L 4.23 Hgb 11.7 L 12.4 Hct 35.6 L 38.6 MCV 89.4 91.3 MCH 29.4 29.3 MCHC 32.9 32.1 RDW 13.1 13.2 Plt Count 578 H 570 H MPV 9.7 9.4 Immature Gran % (Auto) 0.3 Neut % (Auto) 46.2 Lymph % (Auto) 44.4 H [place] % (Auto) 7.1 Eos % (Auto) 1.3 Baso % (Auto) 0.7 Lymph # (Auto) 3.11 [place] # (Auto) 0.5 Eos # (Auto) 0.1 Baso # (Auto) 0.1 Abs Immat Gran (auto) 0.02 Absolute Neuts (auto) 3.2 Absolute Nucleated RBC 0.000 Nucleated RBC % 0.0 Sodium 140 Potassium 3.7 Chloride 109 H Carbon Dioxide 24 Anion Gap 7 BUN 12 Creatinine 0.77 Estim Creat Clear Calc Not Reportable Estimated GFR > 60 Glucose 105 Lactic Acid 1.0 Calcium 9.6 Magnesium 1.9 Total Bilirubin 0.5 AST 21 ALT 14 Alkaline Phosphatase 91 Total Protein 7.1 Albumin 3.9 Urine Color Yellow Urine Appearance Clear Urine pH 7.5 Ur Specific [place] 1.020 Urine Protein Negative Urine Glucose (UA) Negative Urine Ketones Negative Ur Blood (Man) Negative Urine Nitrate Negative Urine Bilirubin Negative Urine Urobilinogen 0.2 Leukocyte Esterase Rfl 1+ H Urine RBC 0-2 Urine WBC 21-50 H Ur Squamous Epith Cells None seen Urine Bacteria None seen Urine Casts 0-2 Quality VTE Prophylaxis VTE prophylaxis: mechanical ordered
[2025-03-09 15:24] VITALS: BP 161/82; PULSE 104; RESP 14; TEMP 36.3; O2SAT 99
[2025-03-09 17:43] LABS: Hematocrit 37.4 % (37.0-47.0); Hemoglobin 12.3 g/dL (12.0-15.0); Mean Corpuscular HGB Conc 32.9 g/dl (32-36); Mean Corpuscular Hemoglobin 29.6 pg (26-34); Mean Corpuscular Volume 89.9 fl (80-100); Platelet Count Result 577 k/mm3 (150-375); Red Blood Count 4.16 M/mm3 (4.2-5.4); White Blood Count 10.2 K/mm3 (4.5-10.0)
[2025-03-09 20:00] VITALS: BP 179/62; PULSE 94; RESP 16; TEMP 37; O2SAT 100
[2025-03-10 04:00] VITALS: BP 145/69; PULSE 100; RESP 16; TEMP 37.2; O2SAT 98
[2025-03-10 06:36] LABS: Hematocrit 36.3 % (37.0-47.0); Hemoglobin 11.6 g/dL (12.0-15.0); Immature Granulocyte Percent A 0.1 % (0-0.5); Lymphocytes Absolute Auto 3.75 K/mm3 (0.9-3.2); Mean Corpuscular HGB Conc 32.0 g/dl (32-36); Mean Corpuscular Hemoglobin 29.3 pg (26-34); Mean Corpuscular Volume 91.7 fl (80-100); Nucleated Red Blood Cells Absolute Auto 0.000 K/mm3 (0.0-0.012); Nucleated Red Blood Cells Perc 0.0 % (0.0-0.2); Platelet Count Result 518 k/mm3 (150-375); Red Blood Count 3.96 M/mm3 (4.2-5.4); White Blood Count 8.0 K/mm3 (4.5-10.0)
[2025-03-10 07:00] VITALS: BP 123/63; PULSE 86; RESP 12; TEMP 36.4; O2SAT 100
[2025-03-10 07:04] LABS: Alanine Aminotransferase 14 U/L (6-35); Albumin Level 3.7 g/dL (3.5-5.1); Alkaline Phosphatase 79 U/L (38-126); Anion Gap 7 mmol/L (4-12); Aspartate Amino Transferase 20 U/L (14-36); Bilirubin,Total 0.4 mg/dL (0.2-1.3); Blood Urea Nitrogen 15 mg/dL (7-17); Calcium 9.6 mg/dL (8.4-10.2); Carbon Dioxide 24 mmol/L (22-30); Chloride 111 mmol/L (98-107); Estimated Glomerular Filt Rate > 60; Glucose 107 mg/dL (65-110); Potassium 4.0 mmol/L (3.4-5.0); Sodium 142 mmol/L (137-145); Total Protein 6.8 g/dL (6.3-8.2)
[2025-03-10 08:00] VITALS: BP 123/63; PULSE 86; RESP 12; TEMP 36.4; O2SAT 100
[2025-03-10] MEDS: THERAPEUTIC MULTIVITAMINS/MINERALS TAB (*BKC) 1 TABLET PO (08:01)
[2025-03-10] MEDS: DULoxetine HCL 60 MG CAPSULE.DR 120 MG PO (08:01)
[2025-03-10] MEDS: CHOLECALCIFEROL (VITAMIN D3) 25 MCG (1,000 UNITS) TABLET 50 MCG PO (08:01)
[2025-03-10] MEDS: ROSUVASTATIN 5 MG TABLET PO (08:01)
[2025-03-10] MEDS: EZETIMIBE 10 MG TABLET PO (08:01)
[2025-03-10 11:54] VITALS: BP 155/72; PULSE 82; RESP 16; TEMP 36.8; O2SAT 100
--- NOTE | 2025-03-10 13:50 | P.DS_ITS ---
DS: Admitting Diagnosis Discharge Date 03/10/2025 Admitting Diagnosis Pyelonephritis DS: Discharge Diagnosis Discharge Diagnosis (1) Pyelonephritis: Code(s): N12 - Tubulo-interstitial nephritis, not specified as acute or chronic Status: Acute Assessment and Plan: * originally diagnosed with UTI 02/25 and was prescribed Levaquin without much improvement in her symptoms. * CT A/P with R-sided pyelonephritis * UA with 1+ LE, 21-50 WBC. Urine was collected after starting antibiotics. * follow-up blood and urine cultures - still pending * continue IV Rocephin (2) Anxiety and depression: Code(s): F41.9 - Anxiety disorder, unspecified; F32.A - Depression, unspecified Status: Acute Assessment and Plan: * continue home duloxetine, propranolol once med list verified (3) Hypertension: Code(s): I10 - Essential (primary) hypertension Status: Acute Assessment and Plan: * BP 124/59 * hold hydrochlorothiazide due to concerns for dehydration * p.r.n. hydralazine with parameters. * continue home propranolol once verified (4) Fibromyalgia: Code(s): M79.7 - Fibromyalgia Status: Acute Assessment and Plan: * continue home gabapentin, duloxetine once verified Plan Code status: full code DVT prophylaxis: SCDs Dispo:home in 1-2 days DS: Summary Hospital Course Reason for hospitalization: Nausea vomiting and diarrhea. Hospital Course: The patient is a 69-year-old female with a history of fibromyalgia, hypertension, hyperlipidemia, and anxiety/depression who presented on 03/07/2025 with nausea, vomiting, abdominal pain, and bilateral flank pain after recently completing outpatient antibiotics for a presumed urinary tract infection without symptom improvement. Initial evaluation demonstrated leukocytosis (WBC 11.7) and mildly elevated lactate that improved with IV fluids. CT abdomen/pelvis showed heterogeneous enhancement of the right kidney consistent with acute pyelonephritis. She was admitted to inpatient status and started on IV ceftriaxone, IV fluids, antiemetics, and pain control. Blood and urine cultures were obtained, with urine collected after antibiotic initiation. During hospitalization, the patient showed clinical improvement with resolution of nausea, vomiting, and abdominal pain, and decreasing flank tenderness. Laboratory values normalized with downtrending WBC count and stable renal function. Hydrochlorothiazide was held due to dehydration risk, while home propranolol, duloxetine, and gabapentin were continued. She remained hemodynamically stable, afebrile, and without complications. Although urine culture did not show any growth of bacteria, given worsening symptoms and failure to clinically improve on outpatient oral Levaquin, discussed with ID pharmacist regarding further treatment options and will discharge the patient on seven day course of Augmentin. Patient is amenable to this plan and can be safely discharged home at this time. Status at Discharge Functional status at discharge: independent ambulation Overall status at discharge: patient is back to baseline Time Spent with Patient Time attestation: Total time spent providing and/or coordinating discharge services: 28 Exam Narrative: General: NAD Eyes: EOMI ENT: neck supple Cardiovascular: Regular rate and rhythm Respiratory: Clear to auscultation, respirations even and unlabored on RA Gastrointestinal: Soft, non tender Genitourinary: no abd tenderness or CVA tenderness Musculoskeletal: No edema Skin: warm, dry Neuro: Alert. Psych: Mood appropriate Const: General: cooperative, no acute distress, well developed, awake, Physically active, average body habitus and well nourished Nutritional Appearance: average body habitus and well nourished Orientation/consciou sness: oriented to person, oriented to place, oriented to time and patient oriented x3 Limitations: no limitations HENMT: Head: normal to inspection, No palpable skull fracture present and normocephalic Eyes: General: appearance normal, both eyes and all related structures Alignment and Position: alignment normal Periorbital: periorbital findings normal Eyelids: eyelids normal Neck: Neck: normal visual inspection and full ROM Chest: Chest palpation & inspection: normal inspection of the chest Resp: Effort & Inspection: normal respiratory effort Auscultation: clear to auscultation bilaterally Percussion: percussion normal Cardio: Palpation: normal PMI Rate: regular rate Rhythm: regular rhythm Heart sounds: S1 normal heart sound present and S2 normal heart sound present Peripheral pulses: Peripheral pulses 2+ throughout GI: Inspection: normal to inspection Auscultation: normal bowel sounds Rectal Exam: deferred Skin: General skin exam: normal color Lesions: no lesions Rashes: no rashes Trauma: no lacerations or abrasions Wounds: no wounds Hair: normal Nails: normal Neuro: General: oriented to person, oriented to place, oriented to time and patient oriented x3 Cranial nerves: Yes Normal hearing present Cognition (Neuro): normal cognition Speech: normal speech Gait exam (Neuro): Normal gait present Motor exam (neuro): 5/5 motor strength present throughout Sensory Exam: normal sensation Extrem: General: normal to inspection Right upper extremity: normal to inspection and shoulder/upper arm Left upper extremity: normal to inspection and shoulder/upper arm Right lower extremity: normal to inspection Left lower extremity: normal to inspection Psych: Appearance: grossly normal Mental Status: mental status grossly normal Speech and movement: Normal speech and movement present Affect: normal affect Attitude: cooperative Thought process: Normal thought process present Insight: Good insight present (Psych) Judgement: Good judgement present (Psych) DS: Data Data Completed and Pending Labs on day of discharge: Labs from last 24 hours 03/10/25 03/09/25 06:26 17:18 WBC 8.0 10.2 H RBC 3.96 L 4.16 L Hgb 11.6 L 12.3 Hct 36.3 L 37.4 MCV 91.7 89.9 MCH 29.3 29.6 MCHC 32.0 32.9 RDW 13.2 13.2 Plt Count 518 H 577 H MPV 9.7 9.9 Immature Gran % (Auto) 0.1 Neut % (Auto) 42.6 L Lymph % (Auto) 47.1 H [place] % (Auto) 8.2 Eos % (Auto) 1.1 Baso % (Auto) 0.9 Lymph # (Auto) 3.75 H [place] # (Auto) 0.7 H Eos # (Auto) 0.1 Baso # (Auto) 0.1 Abs Immat Gran (auto) 0.01 Absolute Neuts (auto) 3.4 Absolute Nucleated RBC 0.000 Nucleated RBC % 0.0 Sodium 142 Potassium 4.0 Chloride 111 H Carbon Dioxide 24 Anion Gap 7 BUN 15 Creatinine 0.76 Estim Creat Clear Calc Not Reportable Estimated GFR > 60 Glucose 107 Lactic Acid 1.2 Calcium 9.6 Total Bilirubin 0.4 AST 20 ALT 14 Alkaline Phosphatase 79 Total Protein 6.8 Albumin 3.7 Preliminary micro results at discharge 03/07/25 18:13 Blood Culture - Preliminary Blood 03/07/25 18:51 Blood Culture - Preliminary Blood Discharge Plan Discharge Attending physician on discharge: Flo Norwood Consulting providers: Shira Thompson; David Lott Discharging Clinician: David Lott Anticipated Discharge Date/Time: 03/10/25 13:46 Patient Disposition: Home Activity: as tolerated Diet: regular Discharge Instructions: Discharge disposition: Home Take medications as prescribed. You will be prescribed Augmentin for an additional 7 days. Take this twice daily for the entire course. Monitor blood pressures Take caution while standing, rising, or moving Change positions slowly taking a break between each position change If you standing feel dizzy sit back down and take a break Encouraged to continue with yearly vaccinations Return to the emergency department if you develop sudden shortness of breath, chest pain, nausea, vomiting, upset stomach or intractable diarrhea Return to the emergency department if you develop fever greater than 101.5 Follow-up with the primary care physician within 1-2 weeks Thank you for [facility] for your healthcare needs Patient Instructions: Antibiotic Form Patient Language: [place] Stand Alone Forms: General Discharge Information Follow-up/Referrals: Alin Obrien MD [Primary Care Provider, Internal Medicine] Discharge Medications: New amoxicillin-pot clavulanate 875-125 mg tablet 1 tablet PO Q12H Qty: 14 0RF Continued gabapentin 800 mg tablet 800 mg PO DAILY hydrochlorothiazide 25 mg tablet 25 mg PO DAILY duloxetine 60 mg capsule,delayed release(DR/EC) 120 mg PO DAILY ezetimibe 10 mg tablet 10 mg PO DAILY rosuvastatin 5 mg tablet 5 mg PO DAILY propranolol 80 mg capsule,extended release 24 hr 80 mg PO .BEDTIME [facility] 8 mg iron-400 mcg-50 mcg tablet 1 tablet PO DAILY cholecalciferol (vitamin D3) [D3 DOTS] 50 mcg (2,000 unit) tablet 50 mcg PO DAILY Date of admission: 03/07/25 20:20 Primary Care Provider: Alin Obrien Admitting Provider: Mitchel Gomez Attending physician on admission: Mitchel Gomez Condition: Stable Quality VTE Prophylaxis VTE prophylaxis: mechanical ordered
== END 2025-03-10 14:05 | disposition home or self-care (01) | DRG 690 ==
LOC: ANHED 17:59 → ANH3MEDSUR 21:11
PROVIDERS: Nurse Practitioner; Physician Assistant; Admitting Provider Internal Medicine; Emergency Provider Student in an Organized Health Care Education/Training Program; PCP Internal Medicine; Visit Provider Physician Assistant
DX: N10 Acute pyelonephritis (principal); I10 Essential (primary) hypertension; E78.5 Hyperlipidemia, unspecified; M79.7 Fibromyalgia; F41.8 Other specified anxiety disorders
CPT/HCPCS: 36415; 74177; 80048; 80053; 81001; 83605; 83690; 83735; 85025; 85027; 87040; 87086; 96361; 96374; 96375; 99285; A9270; J0360; J0696; J1885; J2405; J7030; J7120; Q9967